=== PATIENT | male | born 1975 | race Caucasian/White ===

== ENCOUNTER 2022-01-19 08:55 | Emergency (ER) | payer OTHER, SELFPAY ==
[2022-01-19] VITALS (7 sets, daily range): BP systolic 123–165; BP diastolic 68–95; PULSE 52–80; RESP 18; TEMP 37.2; O2SAT 98–100
--- NOTE | ~2022-01-19 | XR_ITS ---
EXAMINATION: XR chest 2V DATE: 01/19/2022 10:11 INDICATION: Epigastric abdominal pain. Left flank pain. Nausea. TECHNIQUE: Frontal and lateral views of the chest were obtained. COMPARISON: None. FINDINGS: There is no pneumonia, pleural effusion, or pneumothorax. The heart size is normal. IMPRESSION: 1. No acute cardiopulmonary disease. Reviewed, dictated and finalized at location A.
--- NOTE | ~2022-01-19 | US_ITS ---
EXAMINATION: US abdomen limited DATE: 01/19/2022 13:09 INDICATION: Epigastric abdominal pain. TECHNIQUE: Multiple grayscale and Doppler ultrasound images of the abdomen were obtained. COMPARISON: CT abdomen and pelvis 01/19/2022 FINDINGS: The visualized portions of the head and body of the pancreas are normal. The liver is hector l without focal lesion. There is normal flow in main portal vein. The gallbladder is normal in size a nd contains gallstones. Gallbladder wall thickening is noted. There was no sonographic Mcmillan sign. T he common duct is normal and measures 3 mm. IMPRESSION: 1. Cholelithiasis. Gallbladder wall thickening may be chronic cholecystitis. Reviewed, dictated and finalized at location A.
--- NOTE | ~2022-01-19 | CT_ITS ---
EXAMINATION: CT abdomen pelvis w con DATE: 01/19/2022 11:24 INDICATION: Epigastric abdominal pain. TECHNIQUE: Computed tomography (CT) of the abdomen and pelvis was performed with 100 mL Omnipaque 350 intravenous contrast. Automated exposure control and iterative reconstruction technique were employe d. The dose-length product was 732.04 mGy-cm. COMPARISON: None. FINDINGS: The visualized portions of the lung bases demonstrate mild atelectasis. No pleural effusion . The heart size is normal. No pericardial effusion. The liver is normal. The gallbladder is normal i n size. Gallbladder wall thickening is noted. The spleen, pancreas, and adrenal glands are normal. Th ere are cysts in the kidneys measuring up to 10 mm on the left. There are no dilated loops of bowel. The appendix is normal. There are no pathologically enlarged lymph nodes. There is no free intraperit tan fluid. There is mild thoracolumbar spondylosis. IMPRESSION: 1. Gallbladder wall thickening, most likely acute or chronic cholecystitis. Reviewed, dictated and finalized at location A.
--- NOTE | 2022-01-19 09:01 | ECG_ITS ---
Measurements Intervals [place] Rate: 55 P: 73 [place]: 135 QRS: 72 QRSD: 107 T: 59 QT: 395 QTc: 378 Interpretive Statements SINUS BRADYCARDIA ST ELEVATION, PROBABLY EARLY REPOLARIZATION VERSUS INJURY PATTERN ABNORMAL ECG NO PREVIOUS ECG AVAILABLE FOR COMPARISON Electronically Signed On 01-19-2022 11:48:57 CDT by Jerrell Sawyer M.D.
[2022-01-19 09:16] LABS: Basophils Percent Auto 0.2 % (0.2-1.2); Eosinophils Percent Auto 0.4 % (0-4.4); Hematocrit 42.8 % (42.0-52.0); Hemoglobin 14.7 g/dL (14.0-18.0); Immature Granulocyte Absolute 0.03 K/mm3 (0.00-0.031); Immature Granulocyte Percent A 0.3 % (0-0.5); Lymphocytes Absolute Auto 1.09 K/mm3 (0.9-3.2); Mean Corpuscular HGB Conc 34.3 g/dl (32-36); Mean Corpuscular Hemoglobin 30.2 pg (26-34); Mean Corpuscular Volume 88.1 fl (80-100); Mean Platelet Volume 10.6 fl (7.4-10.4); Monocytes Absolute Auto 0.4 K/mm3 (0.1-0.6); Monocytes Percent Auto 4.2 % (2.6-8.5); Neutrophils Absolute Auto 8.3 K/mm3 (1.3-6.7); Neutrophils Percent Auto 83.9 % (45.5-73.1); Platelet Count Result 204 k/mm3 (150-375); Red Blood Count 4.86 M/mm3 (4.6-6.20); Red Cell Distribution Width 13.2 % (11.5-14.5); White Blood Count 9.9 K/mm3 (4.5-10.0)
[2022-01-19] MEDS: ONDANSETRON INJ 4 MG/2 ML VIAL IV PUSH (09:26)
[2022-01-19 09:34] LABS: Alanine Aminotransferase 18 U/L (4-50); Albumin Level 4.5 g/dL (3.5-5.1); Alkaline Phosphatase 46 U/L (38-126); Anion Gap 6 mmol/L (8-16); Aspartate Amino Transferase 24 U/L (17-59); Bilirubin,Total 0.6 mg/dL (0.2-1.3); Blood Urea Nitrogen 13 mg/dL (9-20); Calcium 8.7 mg/dL (8.4-10.2); Carbon Dioxide 30 mmol/L (22-30); Chloride 103 mmol/L (98-107); Estimated CRCL calculation 113 ml/min; Estimated Glomerular Filt Rate > 60; Glucose 121 mg/dL (65-110); Lipase 96 U/L (23-300); Potassium 3.7 mmol/L (3.4-5.0); Sodium 139 mmol/L (137-145)
--- NOTE | 2022-01-19 09:50 | ED.ABDPAIN ---
HPI - Abdominal Pain General Chief Complaint: Abdominal Pain Stated Complaint: abdominal pain Time Seen by Provider: 01/19/22 09:15 Source: patient Mode of arrival: ambulatory Limitations: no limitations History of Present Illness HPI narrative: This is a 46-year-old male that presents to the emergency department for epigastric pain present since this morning. Reports he awoke at 4 AM with epigastric discomfort. It has been a constant pressure since onset. It radiates from the left side of his abdomen up into his epigastrium. He did not take anything for his pain. Associated with some nausea and dry heaves. Denies fever, shortness of breath, vomiting, dysuria, hematuria. Related Data Allergies Allergy/AdvReac Type Severity Reaction Status Date / Time No Known Allergies Allergy Verified 05/11/21 14:54 Review of Systems Review of Systems: CONSTITUTIONAL: Denies fever CARDIOVASCULAR: Reports chest/epigastric pain RESPIRATORY: Denies dyspnea. GASTROINTESTINAL: Reports abdominal pain, nausea. Denies vomiting, or diarrhea. GENITOURINARY: Denies dysuria or hematuria. All systems reviewed & are unremarkable except as noted in HPI and below PMFSH Past Medical History Medical History (Updated 01/19/22 @ 13:50 by Debra Streeetr PA-C) CTS (carpal tunnel syndrome) GERD (gastroesophageal reflux disease) Surgical History Surgical History (Updated 05/11/21 @ 14:[address]iz MD) History of vasectomy Family History Family History Mother Family history of thyroid disease Grandparent Family history of thyroid disease Hypertension Family history of cardiovascular disease Acute myocardial infarction, Onset Age: 62 Carcinoma of colon, Onset Age: 51 Family history of coronary artery disease, Onset Age: 62 Father Hypertension Other No family history of diabetes mellitus Social History Social History (Updated 01/19/22 @ 09:53 by Debra Streeter PA-C) Smoking status: Never smoker Alcohol intake: current Substance use: never Exam Narrative: GENERAL: Well-appearing, well-nourished, and in no acute distress. HEAD: Normocephalic, atraumatic. EYES: EOMI. CHEST: Clear to auscultation. No respiratory distress. No wheezes rales or rhonchi HEART: Regular rate and rhythm. No murmur heard. Normal peripheral pulses. ABDOMEN: Soft, nondistended, normal active bowel sounds. Tender to palpation in epigastrium, without guarding EXTREMITIES: Normal range of motion. No edema. SKIN: Warm, dry, no rash. NEURO: No focal deficits. Alert and oriented x3. PSYCH: Normal mood and affect Course Consultations Consultation #1: Spoke with Dr. Gabriel about patient and work-up. Patient will be started on oral antibiotics, given pain medication, and instructed on low-fat diet. He is to follow-up in clinic. Date: 01/19/22 Time: 13:49 Vital Signs Vital signs: Vital Signs Temperature 98.9 F 01/19/22 09:02 Pulse Rate 60 01/19/22 09:02 Respiratory Rate 18 01/19/22 09:02 Blood Pressure 165/94 H 01/19/22 09:02 Pulse Oximetry 100 01/19/22 09:02 Temperature 98.9 F 01/19/22 09:02 Pulse Rate 56 L 01/19/22 13:26 Respiratory Rate 18 01/19/22 13:26 Blood Pressure 123/68 01/19/22 13:26 Pulse Oximetry 98 01/19/22 13:26 MDM - Abdominal Pain MDM Narrative Medical decision making narrative: Patient presents to the emergency department for epigastric pain present since this morning. He is afebrile and nontoxic-appearing. Hypertensive upon arrival, this normalized with treatment of pain. CBC and metabolic panel without concerning findings. Lipase is normal. EKG with some changes consistent with probable early repolarization. His baseline and 3-hour troponin were negative. UA without evidence of infection. CT scan of the abdomen and pelvis shows gallbladder wall thickening, most likely acute or chronic cholecystitis. Chest x-ray wi
[2022-01-19] MEDS: PANTOPRAZOLE SODIUM IV 40 MG VIAL IV PUSH (09:54)
[2022-01-19 09:59] LABS: Partial Thromboplastin Time 28.2 SECONDS (22.3-36.8); Prothrombin Time 12.5 Seconds (11.1-14.7)
[2022-01-19 10:02] LABS: Appearance Urine Clear (Clear); Bilirubin Urine Negative (Negative); Color Urine Yellow (Yellow); Glucose Urine UA Negative (Negative); Ketones Urine Negative (Negative); Leukocyte Esterase Ur Negative LEU/UL (Negative); Nitrate Urine Negative (Negative); Protein Urine Negative (Negative); Specific Grav Ur 1.025 (1.001-1.035); Urobilinogen Urine 0.2 mg/dL (<2.0)
[2022-01-19 10:03] LABS: Add Urine Microscopic? YES; Blood Urine Trace-Intact (Negative)
--- NOTE | 2022-01-19 10:05 | PC.NURSE ---
pt to xray via w/c
[2022-01-19 10:07] LABS: Troponin I < 0.012 ng/mL (0.000-0.034)
[2022-01-19 10:09] LABS: Mucus Urine Rare /lpf; Squamous Epithelial Cell Urine Rare /hpf (Few); WBC Urine 0-3 /hpf
[2022-01-19] MEDS: MORPHINE SULFATE (*CRX) 4 MG/ML INJ IV PUSH (11:05)
--- NOTE | 2022-01-19 11:09 | PC.NURSE ---
Pt to CT via stretcher
[2022-01-19 12:40] LABS: Troponin I < 0.012 ng/mL (0.000-0.034)
--- NOTE | 2022-01-19 13:02 | PC.NURSE ---
Pt returned from Ultrasound.
== END 2022-01-19 14:06 | disposition home or self-care (01) ==
PROVIDERS: Physician Assistant; Emergency Provider Emergency Medicine; PCP Family Medicine
DX: K80.10 Calculus of gallbladder with chronic cholecystitis without obstruction (principal); K21.9 Gastro-esophageal reflux disease without esophagitis; R00.1 Bradycardia, unspecified; R94.31 Abnormal electrocardiogram [ECG] [EKG]
CPT/HCPCS: 36415; 71046; 74177; 76705; 80053; 81001; 83690; 84484; 85025; 85610; 85730; 93005; 96365; 96375; 99284; C9113; J0131; J2270; J2405; Q9967

== ENCOUNTER 2022-04-16 00:12 | Day surgery (SDC) | payer OTHER, SELFPAY ==
[2022-04-12 15:28] VITALS: BMI 24.4
--- NOTE | 2022-04-12 15:47 | PC.NURSE ---
Report to the Outpatient Waiting Room, entrance under the green pavilion located off [facility], at time 10:00 on date 04/16/22. OR Time: 12:00. - You and your visitor will be asked a series of questions to screen for COVID 19 for your protection. - Only one visitor is allowed at this time. - The patient visitor is requested to leave or wait in car when not with patient. - A mask is required within the hospital. Patients may have clear liquids (water, carbonated beverages, clear teas, apple juice) until 3 hours prior to surgery (9:00) with a maximum of 20 ounces. - No food from midnight until time of surgery Take the following medications with a SIP of water the morning of surgery: NONE Medications to discontinue per physician: VITAMINS/SUPPLEMENTS Date to take last dose: 04/12/22 Please no make-up, nail maltese, hairspray, perfume, deodorant, or body powder the day of surgery. No jewelry (including any body piercings) or valuables the day of surgery, leave them at home. Please take a shower or bath the night before, or the morning of, surgery with an antibacterial soap. Wear comfortable, loose fitting clothing. HIBICLENS SHOWER - Jewelry must be removed prior to entering the operating room. Rings and piercings that are not removed may be cut off. - The hospital will not accept responsibility for valuables. - Please leave all valuables, including medications, at home the day of surgery. If you are going home after surgery, a licensed delivery driver must drive you home. - NO public transportation without another adult. - We recommend that an adult stay with you for 24 hours following discharge. - We also recommend that you do not drive, make important decision, drink alcoholic beverages, or take any drugs that were not prescribed by your health care provider for at least 24 hours after your discharge time. Follow any additional instructions given to you from your surgeon. If you or anyone in your household have experienced Covid symptoms in the past week, please notify your surgeon or the nurse liaison at the phone number below for possible testing. Telephone instructions given to PT - ZACH MANLEY and asked if any additional questions and then verbalized understanding. Patient advised to call surgeon office or pre surgery nurse liaison [phone] if any additional questions.
--- NOTE | 2022-04-15 13:00 | P.PNAN_ITS ---
Anes - Initial Pre Proc Eval Procedure: Operation Date: 04/16/22 13:00 Proposed Procedures p Laparoscopic Cholecystectomy, Possible Intraoperative Cholangiogram, Possible Open - Tutu Gabriel MD Date/Time: 04/15/22 13:00 Surgeon: Tutu Gabriel MD Pre Op Diagnosis: chronic cholecystitis with cholelithiasis Patient Data Age: 46 Gender: M Height: 1.83 m Weight: 81.65 kg Allergies Allergy/AdvReac Type Severity Reaction Status Date / Time No Known Allergies Allergy Verified 04/12/22 15:28 Home Medications Medication Instructions Recorded Confirmed Type multivitamin 1 tablet PO DAILY 01/23/22 04/12/22 History omega 7-vqr-eyr-fish oil 60 mg-90 1 cap PO DAILY 01/23/22 04/12/22 History mg-500 mg capsule (Fish Oil) Patient hx anesthesia problems: none Family hx anesthesia problems: none Results Review: All pre-operative results and documents have been reviewed as part of the pre- operative evaluation. [facility] Past Medical History Medical History CTS (carpal tunnel syndrome) GERD (gastroesophageal reflux disease) Hypertension Surgical History Surgical History H/O wisdom tooth extraction History of vasectomy Family History Family History Mother Family history of thyroid disease Grandparent Family history of thyroid disease Hypertension Family history of cardiovascular disease Acute myocardial infarction, Onset Age: 62 Carcinoma of colon, Onset Age: 51 Family history of coronary artery disease, Onset Age: 62 Father Hypertension Other No family history of diabetes mellitus Social History Social History Smoking status: Never smoker Alcohol intake: current Drinks per week: 3 Alcohol use details: Social alcohol use Substance use: never Substance use type: does not use Living arrangements: with family Additional occupation/education comments: Banking Spiritual care concerns: No Anes - Eval Final PreProcedure Day of Procedure 04/15/22 13:00 Patient weight: normal Heart: regular rate and rhythm Lungs: clear to auscultation and normal air movement Airway: Mallampati scale class II Neurological: alert and oriented Last oral intake: >/= 8 hours ASA classification: II Emergent: no Anesthetic plan: proceed Anesthesia type and monitoring: general ETT Results Review: All pre-operative results and documents have been reviewed as part of the pre-operative evaluation. Informed Consent: The patient's anesthetic plan and its attendant risks and benefits were discussed with the patient/family/POA. Questions were solicited and answers provided to the satisfaction of the patient/family/POA.
[2022-04-16] VITALS (8 sets, daily range): BP systolic 134–160; BP diastolic 86–97; PULSE 55–91; RESP 16–20; TEMP 36.2–36.5; O2SAT 99–100
[2022-04-16] MEDS: ACETAMINOPHEN 500 MG TABLET 1000 MG PO (11:00)
[2022-04-16] MEDS: LACTATED RINGERS 1,000 ML 30 ML IV CONT ×2 (11:00→15:04)
[2022-04-16] MEDS: KETOROLAC 15 MG/ML VIAL (*BKC) IV PUSH (11:00)
[2022-04-16 11:35] LABS: Alanine Aminotransferase 19 U/L (6-50); Albumin Level 4.7 g/dL (3.5-5.1); Alkaline Phosphatase 41 U/L (38-126); Amylase 65 U/L (30-110); Aspartate Amino Transferase 23 U/L (17-59); Bilirubin,Total 0.9 mg/dL (0.2-1.3); Lipase 91 U/L (23-300)
--- NOTE | 2022-04-16 12:20 | PM.HPGS ---
History of Present Illness History of Present Illness Consent: Risks, benefits, and alternatives of a laparoscopic cholecystectomy, possible IOC, possible open cholecystectomy have been discussed and questions answered. Patient agrees to proceed with procedure. Chief complaint: chronic cholecystitis with cholelithiasis Narrative: Luis Ann is a 46 year old male Luis is a 46 y/o male who presented to the office for evaluation of LUQ abdominal pain. Patient stated at that time that he has also been experiencing dry heaves and emesis. Patient states he has had two episodes of these symptoms, the first was about 15-21 months ago and the most recent was on 01/19/22. Patient was seen at [facility] ED on 01/19/22, abdominal US was performed revealing cholelithiasis, gallbladder wall thickening may be chronic cholecystitis. Patient stated in January he is was longer taking the prescribed pain medication from the ED. He now has taken the prescribed Cipro antibiotic and finished it. Patient denies any problems with BM's. Patient denies any family history of gallbladder disease Review of Systems Review of Systems: Review of Systems Const All systems reviewed & are unremarkable except as noted in HPI and below Reports chills Eyes Denies change in vision and Denies loss of vision ENT Reports Normal hearing present, Denies headache(s), Denies neck pain and Denies throat swelling Card Reports chest pain Resp Denies cough, Denies dyspnea and Denies wheezing GI Reports abdominal pain, Reports nausea and Reports vomiting Denies hematuria Musc Denies arthralgias, Denies joint swelling and Denies neck pain Neuro Reports Normal hearing present, Denies headache(s) and Denies loss of vision Aller/Immun Denies throat swelling and Denies wheezing PMFSH Past Medical History Medical History CTS (carpal tunnel syndrome) GERD (gastroesophageal reflux disease) Hypertension Surgical History Surgical History H/O wisdom tooth extraction History of vasectomy Family History Family History Mother Family history of thyroid disease Grandparent Family history of thyroid disease Hypertension Family history of cardiovascular disease Acute myocardial infarction, Onset Age: 62 Carcinoma of colon, Onset Age: 51 Family history of coronary artery disease, Onset Age: 62 Father Hypertension Other No family history of diabetes mellitus Social History Social History Smoking status: Never smoker Alcohol intake: current Drinks per week: 3 Alcohol use details: Social alcohol use Substance use: never Substance use type: does not use Living arrangements: with family Additional occupation/education comments: Banking Spiritual care concerns: No Meds Home Medications and Allergies Home Medications Medication Instructions Recorded Confirmed Type multivitamin 1 tablet PO DAILY 01/23/22 04/16/22 History omega 7-xfp-zoh-fish oil 60 mg-90 1 cap PO DAILY 01/23/22 04/16/22 History mg-500 mg capsule (Fish Oil) hydrocodone 5 mg-acetaminophen 325 1 tablet PO Q6H PRN pain #12 tabs 04/16/22 Rx mg tablet Allergies Allergy/AdvReac Type Severity Reaction Status Date / Time No Known Allergies Allergy Verified 04/16/22 12:10 Vital Signs Vital Signs - 24 hr 04/16/22 12:10 Temperature 36.2 C L Pulse Rate 65 Respiratory Rate 16 Blood Pressure 134/86 Pulse Oximetry 100 Oxygen Delivery Room Air Exam Narrative: Exam Const Constitutional General: no acute distress and alert Orientation/consciousness: oriented to person, oriented to place, oriented to time and patient oriented x3 HENMT Head: normocephalic and atraumatic Ears: hearing grossly normal bilaterally General nose exam: Normal ex
--- NOTE | 2022-04-16 12:30 | WPDHPUPDATE1 ---
History and Physical Update Update Date/Time: 04/16/22 12:30 History and Physical has been reviewed, including an updated exam of the patient. There are NO changes in the patient's condition. Risks, benefits, and alternatives have been discussed and questions answered. Patient agrees to proceed with procedure.
[2022-04-16] MEDS: ceFAZolin 2 GM/D5W 50 ML 2 GM/50 ML BAG IVPB (12:40)
--- NOTE | 2022-04-16 21:15 | W.PM.PROC2 ---
Procedure Note - Detailed Date of Procedure 04/16/22 Pre-op Diagnosis chronic cholecystitis with cholelithiasis Post-op Diagnosis Same Procedure Performed Laproscopic Cholecystectomy Surgeon Tutu Gabriel MD Inspector Brake Lining Stella OGDEN.OR occupational therapist assistant Anesthesia General Indications Patient had an ultrasound showing gallstones along with intermittent upper abdominal pain. (see H&P) Findings Apparent chronic cholecystitis. Many yellow brown varying size stones within the gallbladder. Description of Procedure Patient was seen preoperatively in the holding area and risks, benefits and alternatives confirmed. Patient was taken to the operating room and general anesthesia was induced. A time out was then preformed with the surgery team confirming patient and site of surgery. The abdomen was prepped and draped in the usual sterile fashion. Incision was made just below and in the umbilicus with an 11 blade knife. I placed 2 stay sutures of O- Vicryl on either side of the mid-line fascia beneath the umbilicus and was then able to slide in the Curtis cannula through the fascial defect into the peritoneum. First under low flow and then under high flow the abdomen was insufflated with carbon dioxide never exceeding a pressure of 14. Three 5 mm trocars were then introduced under direct vision. The following trocars were introduced under direct vision: a 5 mm in the epigastrium and two 5 mm trocars along the right costal margin laterally in the subcostal area. There were not any adhesions to the underside of the gallbladder. I then carefully used the L-shaped cautery and the [place] dissector to dissect out the triangle of [place]. I then was able to dissect out both the cystic duct and cystic artery and identify a window of safety. For this patient this took some extra time because this cystic duct paralleled a large vascular structure that I suspect was the right hepatic artery. The gall bladder was grasped and the cystic duct and artery were dissected free and clipped with an 5 mm endo-clip cigar sorter. The cystic duct and artery were clipped with use of 2 clips on the patient's side 1 on the gallbladder side utilizing a 5 mm endoclip-cigar sorter. The cystic duct was then transected. The cystic artery was also transected at this point. The gall bladder was removed using electrocautery and then removed from the abdomen using a large 10 mm grasper via the umbilical incision. Because of the thickness of the gallbladder and then significant number of stones within it had to enlarge the incision and even open the gallbladder externally and use a sponge stick to remove some of the stones to allow the gallbladder to be pulled up out through the umbilical incision site. In order to get the large stone out of the abdomen within the gallbladder I did make the fascial defect slightly larger with Seymour scissors. There was no real spill of bile or stones within the abdomen under the umbilicus. The Curtis cannula was placed through the incision at the umbilicus to its closure the 5 mm trocars were then removed visualizing hemostasis and the remaining gas evacuated. The large trocar site at the umbilicus was closed with use of the 2 stay sutures of 0 Vicryl mentioned above and also two figure of 8 #1 Vicryl sutures. The 2 stay sutures mentioned above on either side of the fascia were also tied together to help approximate this midline fascia. Further local anesthetic was placed into each incision for postop pain control. The skin incisions were closed with subcuticular suture of 4-0 Monocryl. Surgical glue then was applied to all the incisions. Patient tolerated the procedure well was taken to the recovery room in good condition. Implants none Estimated Blood Loss 35 Drains No Packing No Pathology Yes (Gallbladder) Complications No immediate complications Condition Stable Disposition PACU [facility] Billing Surgery - Charge Forward: Surgery Billing
== END 2022-04-16 17:10 | disposition home or self-care (01) ==
PROVIDERS: PCP Family Medicine; Visit Provider Surgery
PROC: 0FT44ZZ Resection of Gallbladder, Percutaneous Endoscopic Approach (ICD-10-PCS; CPT 47562; principal; 2022-04-16 12:00)
DX: K80.10 Calculus of gallbladder with chronic cholecystitis without obstruction (principal); K21.9 Gastro-esophageal reflux disease without esophagitis; R03.0 Elevated blood-pressure reading, without diagnosis of hypertension; N40.0 Benign prostatic hyperplasia without lower urinary tract symptoms; G56.00 Carpal tunnel syndrome, unspecified upper limb
CPT/HCPCS: 47562; 36415; 80076; 82150; 83690; 88304; A9270; J0690; J1100; J1170; J1885; J2250; J2405; J2704; J2710; J3010; J7120; Q9966